=== PATIENT | female | born 1975 | race African-American/Black ===

== ENCOUNTER → 2022-02-02 | Outpatient (CLI) | payer MEDICARE, MEDICAID ==
[~2022-02-02] MED LIST: DIAZ10TA4 PO; KEPPRA; LEVE1000 PO; MIRT-89 PO; MIRT-90; VALIUM
[2022-02-02 12:44] LABS: BASOPHILS % 0.4 % (0.0-2.0); EOSINOPHILS % 3.5 % (0.0-5.0); HEMATOCRIT. 41.5 % (36.0-48.0); HEMOGLOBIN. 13.5 g/dL (12.0-16.0); LYMPHOCYTES % 31.2 % (20.0-50.0); MEAN PLATELET VOLUME 7.9 fl (7.4-10.4); MONOCYTES % 4.7 % (2.0-8.0); NEUTROPHILS % 60.2 % (40.0-76.0); PLATELET 384 x1000/uL (130-400); RED BLOOD CELL COUNT 4.83 mill/uL (4.2-5.4); RED CELL DISTRIBUTION WIDTH 18.5 % (11.6-14.6)
[2022-02-02 12:50] LABS: CHLORIDE 108 mEq/L (98-107)
[2022-02-02 13:00] LABS: PARTIAL THROMBOPLASTIN TIME 26.2 sec (23.4-31.0); PROTHROMBIN TIME 10.3 sec (9.6-11.0)
[2022-02-02 13:02] LABS: HCG SCREEN NEGATIVE
== END | disposition home or self-care (01) ==
LOC: LAB 12:11
PROVIDERS: ATTEND Psychiatry & Neurology Neurology
DX: G35 Multiple sclerosis (principal)
CPT/HCPCS: 36415; 80053; 84703; 85025

== ENCOUNTER → 2022-03-07 | Outpatient (CLI) | payer MEDICARE, MEDICAID ==
[~2022-03-07] VITALS: Ht 170.2 cm; Wt 81.6 kg
[~2022-03-07] MED LIST changes: +LIDOCAINE HCL/PF 1% 10 MG/ML 5ML VIAL ONE
[2022-03-07 11:11] LABS: GLUCOSE CSF 70 mg/dL (41-75)
[2022-03-14 17:10] LABS: MYELIN BASIC PROTEIN CSF 3.6 ng/mL (0.0-3.7)
== END | disposition home or self-care (01) ==
LOC: ANGIO 08:18
PROVIDERS: ATTEND Psychiatry & Neurology Neurology
DX: G35 Multiple sclerosis (principal); F17.210 Nicotine dependence, cigarettes, uncomplicated; Z88.1 Allergy status to other antibiotic agents; Z88.8 Allergy status to other drugs, medicaments and biological substances; Z79.899 Other long term (current) drug therapy; Z98.890 Other specified postprocedural states
CPT/HCPCS: 62328; 82040; 82042; 82784; 82945; 83873; 83916; 84157; 89050; J3490